=== PATIENT | male | born 1960 | race Two or more races ===

== ENCOUNTER 2024-03-27 08:33 | Outpatient (AMB) | payer MEDICAID, SELFPAY ==
[2024-03-27 09:02] VITALS: BP 132/84; PULSE 67; RESP 18; TEMP 36.4; O2SAT 97; BMI 34.7
--- NOTE | 2024-03-27 09:02 | ORTHONT_ITS ---
Vital signs 03/27/24 09:02 Height 1.71 m Height Method Stated Weight 102.2 kg Weight Measurement Method Standing Scale BMI 34.7 BP 132/84 H Blood Pressure Source Automatic Cuff Blood Pressure Location Right Upper Arm Position Sitting Respiration 18 Pulse 67 Pulse Source Monitor Temp 97.6 F Temp Source Temporal Artery Scan Pulse Oximetry (%) 97 Oxygen Delivery Method Room Air Med/Allergies Allergies & Medications Allergies No Known Allergies Allergy (Verified 03/27/24 09:02) Medication Reconciliation amlodipine 10 mg tablet 10 mg PO QDAY 03/27/24 [History Confirmed 03/27/24] aspirin 81 mg tablet,delayed release 81 mg PO QDAY 03/27/24 [History Confirmed 03/27/24] atorvastatin 20 mg tablet 20 mg PO QDAY 03/27/24 [History Confirmed 03/27/24] blood sugar diagnostic (Blood Glucose Test strips) 03/27/24 [History Confirmed 03/27/24] carvedilol 3.125 mg tablet 3.125 mg PO BID 03/27/24 [History Confirmed 03/27/24] chlorthalidone 50 mg tablet 50 mg PO QDAY 03/27/24 [History Confirmed 03/27/24] empagliflozin 25 mg tablet (Jardiance) 25 mg PO QAM 03/27/24 [History Confirmed 03/27/24] losartan 25 mg tablet 25 mg PO QDAY 03/27/24 [History Confirmed 03/27/24] metformin 1,000 mg tablet 1,000 mg PO QDAY 03/27/24 [History Confirmed 03/27/24] Subjective Visit Visit for: new patient, hip and knee Immunization / Flu Flu Vaccine in the Last 12 Months: No Flu Vaccine Exclusion Criteria: Already Received History of Present Illness Chief complaint: PAIN RIGHT HIP/KNEE Dawood is a pleasant 63-year-old male with Right hip and right knee pain. He also had recent back surgery. She has had multiple surgeries on his right knee and had a multi leg injury quite a while ago. He has had over 7 injections and has tried extensive physical therapy Pain Pain level (0-10): 4 Pain duration: CONSTANT Pain location: groin, inside (medial) and other (specify) (INNER HIP) Pain quality: sharp, dull and aching Pain timing: night and increases with activity Associated signs & symptoms: none Ambulatory data Ambulatory device: none Treatments Improvement with previous injections: No Improvement with PT: No Improvement with NSAIDS: no Review of Systems Review of Systems: All systems negative unless otherwise noted in HPI. Exam Exam Patient is in no acute distress and is cooperative with the examination today. Breathing is nonlabored. Patient has a normal mood and affect. Bilateral extremities were evaluated and demonstrates sensation intact to light touch. Palpable pedal pulses are present. No significant edema is present. Bilateral hips were examined. The patient has no pain with log roll of the hips. Internal rotation to 30 degrees and external rotation to 30 degrees is painless. Negative FADIR. Left knee was examined today. The left knee is in reasonable alignment. Range of motion from 0-120 degrees. Knee is stable to varus and valgus as well as AP translation with <5mm. Patient has a negative McMurrays. There is no pain with patellofemoral compression and no crepitus noted. The knee is nontender to palpation. The right knee was also examined. The right knee is in [varus] alignment. Range of motion from [0-115] degrees. Knee is stable to varus and valgus as well as AP translation with <5mm. Patient has a [negative] McMurrays. There is [no] pain with patellofemoral compression and [no] crepitus noted. The knee is [tender] to palpation [medially]. Right knee x-rays demonstrates complete obliteration of the medial joint space and osteophytes both medially and laterally. These are nonweightbearing films Assessment and Plan Problem List (1) Arthritis of right knee: Status: Acute Plan: Patient is a 63-year-old male with right knee pain and right knee arthritis. We discussed nonoperative and operative options. He weightbearing x-rays and likely talk about surgery at the next visit. He has tried injections and has failed Office Procedures GNS Level of Care Nursing/Assessment Patient Status: Initial/New Patient Nursing Assessment/Reassesment: Medication Reconciliation, Update PMH in EMR and Vital Signs Coordination of Care: Complex Care and Chronic Disease 1-5, Education Complex Pt/Fam, Consent,records obtained, informed consent, 1 Ins Authorization, Lab and Imaging orders, Results/Orders obtained and Staff clarify orders New Patient Charge New Patient Point Assignment: 1124 New Patient Point Charge: REGISTERED NURSE SURGICAL SERVICES Level 4 ([id number]) Past Medical History Past Medical History Have you ever been diagnosed with any of the following: Surgical History Total Hip Replacement: Yes Total Knee Replacement: Yes
== END 2024-03-27 09:32 | disposition home or self-care (01) ==
PROVIDERS: PCP Family Medicine; Referring Provider Family Medicine; Supervising Provider Orthopaedic Surgery Adult Reconstructive Orthopaedic Surgery; Visit Provider Orthopaedic Surgery Adult Reconstructive Orthopaedic Surgery
DX: M17.11 Unilateral primary osteoarthritis, right knee (principal); M25.561 Pain in right knee
CPT/HCPCS: 99204; G0463

== ENCOUNTER 2024-04-10 10:27 | Outpatient (AMB) | payer MEDICAID, SELFPAY ==
[2024-04-10 11:01] VITALS: BP 108/66; PULSE 62; RESP 18; TEMP 36.8; O2SAT 98; BMI 34.3
--- NOTE | 2024-04-10 11:01 | ORTHONT_ITS ---
Vital signs 04/10/24 11:01 Height 1.71 m Height Method Stated Weight 100.471 kg Weight Measurement Method Standing Scale BMI 34.3 BP 108/66 Blood Pressure Source Automatic Cuff Blood Pressure Location Right Upper Arm Position Sitting Respiration 18 Pulse 62 Pulse Source Monitor Temp 98.2 F Temp Source Temporal Artery Scan Pulse Oximetry (%) 98 Oxygen Delivery Method Room Air Med/Allergies Allergies & Medications Allergies No Known Allergies Allergy (Verified 04/10/24 11:03) Medication Reconciliation amlodipine 10 mg tablet 10 mg PO QDAY 03/27/24 [History Confirmed 04/10/24] aspirin 81 mg tablet,delayed release 81 mg PO QDAY 03/27/24 [History Confirmed 04/10/24] atorvastatin 20 mg tablet 20 mg PO QDAY 03/27/24 [History Confirmed 04/10/24] blood sugar diagnostic (Blood Glucose Test strips) 03/27/24 [History Confirmed 04/10/24] carvedilol 3.125 mg tablet 3.125 mg PO BID 03/27/24 [History Confirmed 04/10/24] chlorthalidone 50 mg tablet 50 mg PO QDAY 03/27/24 [History Confirmed 04/10/24] empagliflozin 25 mg tablet (Jardiance) 25 mg PO QAM 03/27/24 [History Confirmed 04/10/24] losartan 25 mg tablet 25 mg PO QDAY 03/27/24 [History Confirmed 04/10/24] metformin 1,000 mg tablet 1,000 mg PO QDAY 03/27/24 [History Confirmed 04/10/24] Subjective Visit Visit for: follow up visit, hip, knee and x-rays Immunization / Flu Flu Vaccine in the Last 12 Months: No Flu Vaccine Exclusion Criteria: Already Received History of Present Illness Chief complaint: XRAY RESULTS Dawood is a pleasant 63-year-old male with Right hip and right knee pain. He a lso had recent back surgery. She has had multiple surgeries on his right knee and had a multi leg injury quite a while ago. He has had over 7 injections and has tried extensive physical therapy Pain Pain level (0-10): 4 Pain duration: CONSTANT Pain location: groin and inside (medial) Pain quality: sharp, dull and aching Pain timing: night and increases with activity Associated signs & symptoms: none Ambulatory data Ambulatory device: none Treatments Improvement with previous injections: No Improvement with PT: No Improvement with NSAIDS: no Review of Systems Review of Systems: All systems negative unless otherwise noted in HPI. Exam Exam Patient is in no acute distress and is cooperative with the examination today. Breathing is nonlabored. Patient has a normal mood and affect. Bilateral extremities were evaluated and demonstrates sensation intact to light touch. Palpable pedal pulses are present. No significant edema is present. Bilateral hips were examined. The patient has no pain with log roll of the hips. Internal rotation to 30 degrees and external rotation to 30 degrees is painless. Negative FADIR. Left knee was examined today. The left knee is in reasonable alignment. Range of motion from 0-120 degrees. Knee is stable to varus and valgus as well as AP translation with <5mm. Patient has a negative McMurrays. There is no pain with patellofemoral compression and no crepitus noted. The knee is nontender to palpation. The right knee was also examined. The right knee is in [varus] alignment. Range of motion from [0-115] degrees. Knee is stable to varus and valgus as well as AP translation with <5mm. Patient has a [negative] McMurrays. There is [no] pain with patellofemoral compression and [no] crepitus noted. The knee is [tender] to palpation [medially]. Right knee x-rays demonstrates complete obliteration of the medial joint space and osteophytes both medially and laterally. Assessment and Plan Problem List (1) Arthritis of right knee: Status: Acute Plan: Patient is a 63-year-old male with right knee pain and right knee arthritis. We discussed nonoperative and operative options. He has failed conservative treatment. We discussed total knee replacement is a reasonable option. He is going on some cruises and would like to get this done most likely around September. We will see him in approximately 3 months to schedule this. Office Procedures GNS Level of Care Nursing/Assessment Patient Status: Established Patient Nursing Assessment/Reassesment: Medication Reconciliation, Update PMH in EMR and Vital Signs Coordination of Care: Complex Care and Chronic Disease 1-5, Education Complex Pt/Fam, Consent,records obtained, informed consent, Results/Orders obtained and Staff clarify orders Established Patient Charge Established Patient Point Assignment: 95 Established Patient Point Charge: EP Level 3 (80-115) Past Medical History Past Medical History Have you ever been diagnosed with any of the following: Respiratory Problems Smoking: No Smoking Exposure: No Surgical History Total Hip Replacement: Yes Total Knee Replacement: Yes
== END 2024-04-10 11:11 | disposition home or self-care (01) ==
LOC: HODSRG 10:27
PROVIDERS: PCP Family Medicine; Referring Provider Family Medicine; Supervising Provider Orthopaedic Surgery Adult Reconstructive Orthopaedic Surgery; Visit Provider Orthopaedic Surgery Adult Reconstructive Orthopaedic Surgery
DX: M17.11 Unilateral primary osteoarthritis, right knee (principal); M25.561 Pain in right knee
CPT/HCPCS: 99213; G0463

== ENCOUNTER 2024-07-14 09:28 | Outpatient (AMB) | payer MEDICAID, SELFPAY ==
--- NOTE | 2024-07-14 09:42 | ORTHONT_ITS ---
Vital signs 07/14/24 09:43 Height 1.71 m Height Method Stated Weight 103.192 kg Weight Measurement Method Standing Scale BMI 35.2 BP 126/78 Blood Pressure Source Automatic Cuff Blood Pressure Location Right Upper Arm Position Sitting Respiration 18 Pulse 68 Pulse Source Monitor Temp 97.4 F Temp Source Temporal Artery Scan Pulse Oximetry (%) 94 L Oxygen Delivery Method Room Air Med/Allergies Allergies & Medications Allergies No Known Allergies Allergy (Verified 07/14/24 09:44) Medication Reconciliation amlodipine 10 mg tablet 10 mg PO QDAY 03/27/24 [History Confirmed 07/14/24] aspirin 81 mg tablet,delayed release 81 mg PO QDAY 03/27/24 [History Confirmed 07/14/24] atorvastatin 20 mg tablet 20 mg PO QDAY 03/27/24 [History Confirmed 07/14/24] blood sugar diagnostic (Blood Glucose Test strips) 03/27/24 [History Confirmed 07/14/24] carvedilol 3.125 mg tablet 3.125 mg PO BID 03/27/24 [History Confirmed 07/14/24] chlorthalidone 50 mg tablet 50 mg PO QDAY 03/27/24 [History Confirmed 07/14/24] empagliflozin 25 mg tablet (Jardiance) 25 mg PO QAM 03/27/24 [History Confirmed 07/14/24] losartan 25 mg tablet 25 mg PO QDAY 03/27/24 [History Confirmed 07/14/24] metformin 1,000 mg tablet 1,000 mg PO QDAY 03/27/24 [History Confirmed 07/14/24] Exam Exam Patient is in no acute distress and is cooperative with the examination today. Breathing is nonlabored. Patient has a normal mood and affect. Bilateral extremities were evaluated and demonstrates sensation intact to light touch. Palpable pedal pulses are present. No significant edema is present. Bilateral hips were examined. The patient has no pain with log roll of the hips. Internal rotation to 30 degrees and external rotation to 30 degrees is painless. Negative FADIR. Left knee was examined today. The left knee is in reasonable alignment. Range of motion from 0-120 degrees. Knee is stable to varus and valgus as well as AP translation with <5mm. Patient has a negative McMurrays. There is no pain with patellofemoral compression and no crepitus noted. The knee is nontender to palpation. The right knee was also examined. The right knee is in [varus] alignment. Range of motion from [0-115] degrees. Knee is stable to varus and valgus as well as AP translation with <5mm. Patient has a [negative] McMurrays. There is [no] pain with patellofemoral compression and [no] crepitus noted. The knee is [tender] to palpation [medially]. Right knee x-rays demonstrates complete obliteration of the medial joint space and osteophytes both medially and laterally. Assessment and Plan Problem List (1) Arthritis of right knee: Status: Acute Plan: Patient is a 63-year-old male with right knee pain and right knee arthritis. We discussed nonoperative and operative options. He has failed conservative t reatment. We discussed total knee replacement as a reasonable option. He is going on some cruises and would like to get this done most likely around September. The nature and purpose of the total knee replacement, alternative method(s) of treatment, the material risks involved, and the possibility of complications were fully explained to the patient. The patient does NOT have any of the following contraindications to TKA: - Active infection of the knee joint, OR - Active systemic bacteremia, OR - Active skin infection or open wound at surgical site, OR - Neuropathic arthritis, OR - Severe, rapidly progressive neurological disease, OR - Severe medical condition that makes risks of surgery outweigh the potential benefit The patient was told the most common risks and complications associated with a total knee replacement include, but are not limited to: blood clots in the leg, fatal pulmonary embolism, dislocation of the prosthesis, intraoperative and postoperative fractures of the femur or tibia, infection, failure of the prosthesis or grafting materials, complications from anesthesia, reactions to blood transfusions, postoperative leg length inequality, instability of the knee replacement, nerve damage or injury, vascular injury, delayed wound healing, infection, other injury or even . In addition, there are risks associated with anesthesia given during this operation. Also, the patient was told that after undergoing a total knee replacement there may still be persistent pain or disability. The patient was informed that the success of this operation in part depends upon the mechanical devices which are going to be implanted and that these devices can fail or malfunction, and may need to be repaired or replaced and there are no guarantees as to the longevity of this device or its parts and that it or its parts could fail prematurely. The patient was also notified that during the course of surgery, there may be a need to use bone graft from donors, and that any bone graft used will be carefully screened for communicable diseases, including AIDS, hepatitis, Cody-Creutzfeldt, or other diseases, but despite the screening procedures, there is a small chance that they could contract one of these diseases. Finally, the patient was asked to follow completely and fully with all advice and recommended treatments, and that recovery and ultimate outcome are affected by their compliance with recommended treatment. We discussed the risks, benefits and treatment alternatives, and the patient is interested in proceeding with surgery. We will try to set this up as expeditiously as possible. Office Procedures GNS Level of Care Nursing/Assessment Patient Status: Established Patient Nursing Assessment/Reassesment: Medication Reconciliation, Update PMH in EMR and Vital Signs Coordination of Care: Complex Care and Chronic Disease 1-5, Education Complex Pt/Fam, Consent,records obtained, informed consent, Results/Orders obtained and Staff clarify orders Established Patient Charge Established Patient Point Assignment: 95 Established Patient Point Charge: EP Level 3 (80-115) Surgical Proc/IM SQ injection Major Surgical Procedure: Yes MA Intake Visit Data Collection New Patient or Established: Established Patient (seen at [facility] within 3 years) Reason for Visit:: F/U KNEE PAIN & XRAYS Seen by Clinical Staff ONLY (RN/MA): No Verbal consent obtained for Telemed visit?: No Business 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 Required: No PCP or OBGYN visit in last 3 months: Yes Hx Now: No Do You Feel Safe at Home: Yes Authorities Contacted: N/A Questionairres Past Medical History Past Medical History Have you ever been diagnosed with any of the following: Respiratory Problems Smoking: No Smoking Exposure: No Surgical History Total Hip Replacement: Yes Total Knee Replacement: Yes Subjective Visit Visit for: follow up visit, knee and x-rays Immunization / Flu Flu Vaccine in the Last 12 Months: No Flu Vaccine Exclusion Criteria: No Exclusion Criteria History of Present Illness Chief complaint: F/U righT KNEE PAIN Dawood is a pleasant 63-year-old male with right knee pain and right knee arthritis. The pain is affecting his quality life. Has had over 7 injections. He is also tried anti-inflammatories and injections. He has had multiple surgeries of the right knee. The pain is affecting his quality life and happiness Pain Pain level (0-10): 4 Pain duration: ALL DAY Pain location: inside (medial), outside (lateral) and anterior Pain quality: sharp, dull and aching Pain timing: increases with activity Associated signs & symptoms: none Ambulatory data Ambulatory device: none Treatments Improvement with previous injections: No Improvement with PT: No Improvement with NSAIDS: no Review of Systems Review of Systems: All systems negative unless otherwise noted in HPI.
[2024-07-14 09:43] VITALS: BP 126/78; PULSE 68; RESP 18; TEMP 36.3; O2SAT 94; BMI 35.2
== END 2024-07-14 10:17 | disposition home or self-care (01) ==
LOC: HODSRG 09:28
PROVIDERS: PCP Family Medicine; Referring Provider Family Medicine; Supervising Provider Orthopaedic Surgery Adult Reconstructive Orthopaedic Surgery; Visit Provider Orthopaedic Surgery Adult Reconstructive Orthopaedic Surgery
DX: M17.11 Unilateral primary osteoarthritis, right knee (principal); M25.561 Pain in right knee
CPT/HCPCS: 99213; G0463

== ENCOUNTER 2024-09-17 14:54 | Outpatient (AMB) | payer MEDICAID, SELFPAY ==
--- NOTE | 2024-09-17 15:02 | PD.ORTHCLVIS ---
Vital signs 09/17/24 15:03 Height 1.71 m Height Method Stated Weight 101.321 kg Weight Measurement Method Standing Scale BMI 34.6 BP 126/75 Blood Pressure Source Automatic Cuff Blood Pressure Location Left Upper Arm Position Sitting Respiration 18 Pulse 75 Pulse Source Monitor Temp 96.2 F L Temp Source Temporal Artery Scan Pulse Oximetry (%) 96 Oxygen Delivery Method Room Air Med/Allergies Allergies & Medications Allergies No Known Allergies Allergy (Verified 09/17/24 15:06) Medication Reconciliation amlodipine 10 mg tablet 10 mg PO QDAY 03/27/24 [History Confirmed 09/17/24] aspirin 81 mg tablet,delayed release 81 mg PO QDAY 03/27/24 [History Confirmed 09/17/24] atorvastatin 20 mg tablet 20 mg PO QDAY 03/27/24 [History Confirmed 09/17/24] blood sugar diagnostic (Blood Glucose Test strips) 03/27/24 [History Confirmed 09/17/24] carvedilol 3.125 mg tablet 3.125 mg PO BID 03/27/24 [History Confirmed 09/17/24] chlorthalidone 50 mg tablet 50 mg PO QDAY 03/27/24 [History Confirmed 09/17/24] empagliflozin 25 mg tablet (Jardiance) 25 mg PO QAM 03/27/24 [History Confirmed 09/17/24] losartan 25 mg tablet 25 mg PO QDAY 03/27/24 [History Confirmed 09/17/24] metformin 1,000 mg tablet 1,000 mg PO QDAY 03/27/24 [History Confirmed 09/17/24] Exam Exam Patient is in no acute distress and is cooperative with the examination today. Breathing is nonlabored. Patient has a normal mood and affect. Bilateral extremities were evaluated and demonstrates sensation intact to light touch. Palpable pedal pulses are present. No significant edema is present. Bilateral hips were examined. The patient has no pain with log roll of the hips. Internal rotation to 30 degrees and external rotation to 30 degrees is painless. Negative FADIR. Left knee was examined today. The left knee is in reasonable alignment. Range of motion from 0-120 degrees. Knee is stable to varus and valgus as well as AP translation with <5mm. Patient has a negative McMurrays. There is no pain with patellofemoral compression and no crepitus noted. The knee is nontender to palpation. The right knee was also examined. The right knee is in [varus] alignment. Range of motion from [0-115] degrees. Knee is stable to varus and valgus as well as AP translation with <5mm. Patient has a [negative] McMurrays. There is [no] pain with patellofemoral compression and [no] crepitus noted. The knee is [tender] to palpation [medially]. Right knee x-rays demonstrates complete obliteration of the medial joint space and osteophytes both medially and laterally. Assessment and Plan Problem List (1) Arthritis of right knee: Status: Acute Plan: Patient is a 63-year-old male with right knee pain and right knee arthritis. We discussed nonoperative and operative options. He has failed conservative treatment. We discussed total knee replacement as a reasonable option. He is going on some cruises and would like to get this done most likely around September. He is waiting for his cardiac clearance. The nature and purpose of the total knee replacement, alternative method(s) of treatment, the material risks involved, and the possibility of complications were fully explained to the patient. The patient does NOT have any of the following contraindications to TKA: - Active infection of the knee joint, OR - Active systemic bacteremia, OR - Active skin infection or open wound at surgical site, OR - Neuropathic arthritis, OR - Severe, rapidly progressive neurological disease, OR - Severe medical condition that makes risks of surgery outweigh the potential benefit The patient was told the most common risks and complications associated with a total knee replacement include, but are not limited to: blood clots in the leg, fatal pulmonary embolism, dislocation of the prosthesis, intraoperative and postoperative fractures of the femur or tibia, infection, failure of the prosthesis or grafting materials, complications from anesthesia, reactions to blood transfusions, postoperative leg length inequality, instability of the knee replacement, nerve damage or injury, vascular injury, delayed wound healing, infection, other injury or even . In addition, there are risks associated with anesthesia given during this operation. Also, the patient was told that after undergoing a total knee replacement there may still be persistent pain or disability. The patient was informed that the success of this operation in part depends upon the mechanical devices which are going to be implanted and that these devices can fail or malfunction, and may need to be repaired or replaced and there are no guarantees as to the longevity of this device or its parts and that it or its parts could fail prematurely. The patient was also notified that during the course of surgery, there may be a need to use bone graft from donors, and that any bone graft used will be carefully screened for communicable diseases, including AIDS, hepatitis, Cody-Creutzfeldt, or other diseases, but despite the screening procedures, there is a small chance that they could contract one of these diseases. Finally, the patient was asked to follow completely and fully with all advice and recommended treatments, and that recovery and ultimate outcome are affected by their compliance with recommended treatment. We discussed the risks, benefits and treatment alternatives, and the patient is interested in proceeding with surgery. We will try to set this up as expeditiously as possible. Office Procedures GNS Level of Care Nursing/Assessment Patient Status: Established Patient Nursing Assessment/Reassesment: Medication Reconciliation, Update PMH in EMR and Vital Signs Coordination of Care: Complex Care and Chronic Disease 1-5, Education Complex Pt/Fam, Consent,records obtained, informed consent, Results/Orders obtained and Staff clarify orders Established Patient Charge Established Patient Point Assignment: 95 Established Patient Point Charge: EP Level 3 (80-115) MA Intake Visit Data Collection New Patient or Established: Established Patient (seen at [facility] within 3 years) Reason for Visit:: PRE OP Seen by Clinical Staff ONLY (RN/MA): No PCP or OBGYN visit in last 3 months: Yes Hx Now: No Do You Feel Safe at Home: Yes Authorities Contacted: N/A Questionairres Past Medical History Past Medical History Have you ever been diagnosed with any of the following: Respiratory Problems Smoking: No Smoking Exposure: No Surgical History Total Hip Replacement: Yes Total Knee Replacement: Yes Subjective Visit Visit for: follow up visit, knee and x-rays Immunization / Flu Flu Vaccine in the Last 12 Months: No Flu Vaccine Exclusion Criteria: No Exclusion Criteria History of Present Illness Chief complaint: F/U righT KNEE PAIN Dawood is a pleasant 63-year-old male with right knee pain and right knee arthritis. The pain is affecting his quality life. Has had over 7 injections. He is also tried anti-inflammatories and injections. He has had multiple surgeries of the right knee. The pain is affecting his quality life and happiness. His hgb a1c is 7.3 Pain Pain level (0-10): 8 Pain duration: ALL DAY Pain location: inside (medial), outside (lateral) and anterior Pain quality: sharp, dull and aching Pain timing: increases with activity Associated signs & symptoms: weakness and none Ambulatory data Ambulatory device: none Treatments Improvement with previous injections: No Improvement with PT: No Improvement with NSAIDS: no Review of Systems Review of Systems: All systems negative unless otherwise noted in HPI.
[2024-09-17 15:03] VITALS: BP 126/75; PULSE 75; RESP 18; TEMP 35.7; O2SAT 96; BMI 34.6
== END 2024-09-17 15:29 | disposition home or self-care (01) ==
LOC: HODSRG 14:54
PROVIDERS: PCP Family Medicine; Referring Provider Family Medicine; Supervising Provider Orthopaedic Surgery Adult Reconstructive Orthopaedic Surgery; Visit Provider Orthopaedic Surgery Adult Reconstructive Orthopaedic Surgery
DX: M17.11 Unilateral primary osteoarthritis, right knee (principal); M25.561 Pain in right knee
CPT/HCPCS: 99213; G0463

== ENCOUNTER 2024-10-20 13:27 | Outpatient (AMB) | payer MEDICAID, SELFPAY ==
[2024-10-20 13:34] VITALS: BP 128/73; PULSE 66; RESP 18; TEMP 36.3; O2SAT 95; BMI 34.3
--- NOTE | 2024-10-20 13:34 | ORTHONT_ITS ---
Vital signs 10/20/24 13:34 Height 1.71 m Height Method Stated Weight 100.499 kg Weight Measurement Method Standing Scale BMI 34.3 BP 128/73 Blood Pressure Source Automatic Cuff Blood Pressure Location Right Upper Arm Position Sitting Respiration 18 Pulse 66 Pulse Source Monitor Temp 97.3 F Temp Source Temporal Artery Scan Pulse Oximetry (%) 95 Oxygen Delivery Method Room Air Med/Allergies Allergies & Medications Allergies No Known Allergies Allergy (Verified 10/20/24 13:34) Medication Reconciliation amlodipine 10 mg tablet 10 mg PO QDAY 03/27/24 [History Confirmed 10/20/24] aspirin 81 mg tablet,delayed release 81 mg PO QDAY 03/27/24 [History Confirmed 10/20/24] atorvastatin 20 mg tablet 20 mg PO QDAY 03/27/24 [History Confirmed 10/20/24] blood sugar diagnostic (Blood Glucose Test strips) 03/27/24 [History Confirmed 10/20/24] carvedilol 3.125 mg tablet 3.125 mg PO BID 03/27/24 [History Confirmed 10/20/24] chlorthalidone 50 mg tablet 50 mg PO QDAY 03/27/24 [History Confirmed 10/20/24] empagliflozin 25 mg tablet (Jardiance) 25 mg PO QAM 03/27/24 [History Confirmed 10/20/24] losartan 25 mg tablet 25 mg PO QDAY 03/27/24 [History Confirmed 10/20/24] metformin 1,000 mg tablet 1,000 mg PO QDAY 03/27/24 [History Confirmed 10/20/24] Exam Exam Patient is in no acute distress and is cooperative with the examination today. Breathing is nonlabored. Patient has a normal mood and affect. Bilateral extremities were evaluated and demonstrates sensation intact to light touch. Palpable pedal pulses are present. No significant edema is present. Bilateral hips were examined. The patient has no pain with log roll of the hips. Internal rotation to 30 degrees and external rotation to 30 degrees is painless. Negative FADIR. Left knee was examined today. The left knee is in reasonable alignment. Range of motion from 0-120 degrees. Knee is stable to varus and valgus as well as AP translation with <5mm. Patient has a negative McMurrays. There is no pain with patellofemoral compression and no crepitus noted. The knee is nontender to palpation. The right knee was also examined. The right knee is in [varus] alignment. Range of motion from [0-115] degrees. Knee is stable to varus and valgus as well as AP translation with <5mm. Patient has a [negative] McMurrays. There is [no] pain with patellofemoral compression and [no] crepitus noted. The knee is [tender] to palpation [medially]. Right knee x-rays demonstrates complete obliteration of the medial joint space and osteophytes both medially and laterally. Assessment and Plan Problem List (1) Arthritis of right knee: Status: Acute Plan: Patient is a 63-year-old male with right knee pain and right knee arthritis. We discussed nonoperative and operative options. He has failed conservative nnamdi atment. We discussed total knee replacement as a reasonable option. He is going on some cruises and would like to get this done as soon as possible. The patient request that he get a copy of the surgery as he wanted films. We discussed with him he would likely need to sign a consent but that this is possible. We discussed that this would likely be doing the crucial parts including implanting the components and cutting the bone with the robot. The nature and purpose of the total knee replacement, alternative method(s) of treatment, the material risks involved, and the possibility of complications were fully explained to the patient. The patient does NOT have any of the following contraindications to TKA: - Active infection of the knee joint, OR - Active systemic bacteremia, OR - Active skin infection or open wound at surgical site, OR - Neuropathic arthritis, OR - Severe, rapidly progressive neurological disease, OR - Severe medical condition that makes risks of surgery outweigh the potential benefit The patient was told the most common risks and complications associated with a total knee replacement include, but are not limited to: blood clots in the leg, fatal pulmonary embolism, dislocation of the prosthesis, intraoperative and postoperative fractures of the femur or tibia, infection, failure of the prosthesis or grafting materials, complications from anesthesia, reactions to blood transfusions, postoperative leg length inequality, instability of the knee replacement, nerve damage or injury, vascular injury, delayed wound healing, infection, other injury or even . In addition, there are risks associated with anesthesia given during this operation. Also, the patient was told that after undergoing a total knee replacement there may still be persistent pain or disability. The patient was informed that the success of this operation in part depends upon the mechanical devices which are going to be implanted and that these devices can fail or malfunction, and may need to be repaired or replaced and there are no guarantees as to the longevity of this device or its parts and that it or its parts could fail prematurely. The patient was also notified that during the course of surgery, there may be a need to use bone graft from donors, and that any bone graft used will be carefully screened for communicable diseases, including AIDS, hepatitis, Travis ob-Creutzfeldt, or other diseases, but despite the screening procedures, there is a small chance that they could contract one of these diseases. Finally, the patient was asked to follow completely and fully with all advice and recommended treatments, and that recovery and ultimate outcome are affected by their compliance with recommended treatment. We discussed the risks, benefits and treatment alternatives, and the patient is interested in proceeding with surgery. We will try to set this up as expeditiously as possible. Office Procedures GNS Level of Care Nursing/Assessment Patient Status: Established Patient Nursing Assessment/Reassesment: Medication Reconciliation, Update PMH in EMR and Vital Signs Coordination of Care: Complex Care and Chronic Disease 1-5, Education Complex Pt/Fam, Consent,records obtained, informed consent, 1 Ins Authorization, Results/Orders obtained and Staff clarify orders Established Patient Charge Established Patient Point Assignment: 110 Established Patient Point Charge: EP Level 3 (80-115) MA Intake Visit Data Collection New Patient or Established: Established Patient (seen at [facility] within 3 years) Reason for Visit:: PRE-OP RIGHT TKA Seen by Clinical Staff ONLY (RN/MA): No Verbal consent obtained for Telemed visit?: No 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: No PCP or OBGYN visit in last 3 months: Yes Hx Now: No Do You Feel Safe at Home: Yes Authorities Contacted: N/A Questionairres Past Medical History Past Medical History Have you ever been diagnosed with any of the following: Respiratory Problems Smoking: No Smoking Exposure: No Surgical History Total Hip Replacement: Yes Total Knee Replacement: Yes Subjective Visit Visit for: follow up visit and knee Immunization / Flu Flu Vaccine in the Last 12 Months: No Flu Vaccine Exclusion Criteria: No Exclusion Criteria History of Present Illness Chief complaint: PRE-OP RIGHT TKA Dawood is a pleasant 63-year-old male with right knee pain and right knee arthritis. The pain is affecting his quality life. Has had over 7 injections. He is also tried anti-inflammatories and injections. He has had multiple surgeries of the right knee. The pain is affecting his quality life and happiness. His hgb a1c is 7.3 Personal History Red flag PMH: BMI BMI Counceling provided: Yes Pain Pain level (0-10): 7 Pain duration: ALL DAY Pain location: anterior and posterior Pain quality: sharp, dull and aching Pain timing: increases with activity Associated signs & symptoms: weakness Ambulatory data Ambulatory device: none Treatments Improvement with previous injections: No Improvement with PT: No Improvement with NSAIDS: no Review of Systems Review of Systems: All systems negative unless otherwise noted in HPI.
== END 2024-10-20 13:45 | disposition home or self-care (01) ==
LOC: HODSRG 13:27
PROVIDERS: PCP Family Medicine; Referring Provider Family Medicine; Supervising Provider Orthopaedic Surgery Adult Reconstructive Orthopaedic Surgery; Visit Provider Orthopaedic Surgery Adult Reconstructive Orthopaedic Surgery
DX: M17.11 Unilateral primary osteoarthritis, right knee (principal); M25.561 Pain in right knee
CPT/HCPCS: 99213; G0463

== ENCOUNTER → 2024-10-22 | Outpatient (CLI) | payer MEDICAID, SELFPAY | END | disposition home or self-care (01) | LOC: CDIM 11:39 → CCTX 11:39 | PROVIDERS: PCP Family Medicine; Referring Provider Orthopaedic Surgery Adult Reconstructive Orthopaedic Surgery; Visit Provider Orthopaedic Surgery Adult Reconstructive Orthopaedic Surgery | DX: Z53.20 Procedure and treatment not carried out because of patient's decision for unspecified reasons (principal) ==

== ENCOUNTER 2024-11-02 08:20 | Day surgery (SDC) | payer MEDICAID, SELFPAY ==
--- NOTE | 2024-10-28 06:00 | EKG_ITS ---
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
[2024-10-28 09:38] VITALS: BMI 35.3
[2024-10-28 10:57] LABS: Basophils # (Auto) 0.1 Thou/mm3 (0.0-0.2); Basophils % (Auto) 1 % (0-2.5); Eosinophils # (Auto) 0.1 Thou/mm3 (0.0-0.5); Eosinophils % (Auto) 2 % (0-10); Hematocrit 43.7 % (41.0-53.0); Hemoglobin 16.5 g/dL (13.5-16.0); Immature Granulocytes % (Auto) 1 % (0-0); Immature Granulocytes Auto 0.04 Thou/mm3 (0.00-0.00); Lymphocytes # (Auto) 1.6 Thou/mm3 (1.0-4.8); Lymphocytes % (Auto) 22 % (10-50); Mean Corpuscular HGB Conc 37.8 g/dl (31.0-37.0); Mean Corpuscular Hemoglobin 34.7 pg (25.0-35.0); Mean Corpuscular Volume 92 fL (80-100); Monocytes # (Auto) 0.5 Thou/mm3 (0.0-0.8); Monocytes % (Auto) 7 % (0-12); Neutrophils # (Auto) 4.9 Thou/mm3 (1.8-7.7); Neutrophils % (Auto) 68 % (37-80); Nucleated Red Blood Cell % 0 /100 WBC (0); Platelet Count 233 Thou/mm3 (140-440); RDW Standard Deviation 40.7 fL (35.1-43.9); Red Blood Count 4.76 Miln/mm3 (4.50-5.90); White Blood Count 7.2 Thou/mm3 (3.8-10.6)
[2024-10-28 11:11] LABS: INR 0.9 (0.9-1.3); Partial Thromboplastin Time 25.1 Seconds (22.0-36.0); Prothrombin Time 10.3 Seconds (9.0-12.2)
--- NOTE | 2024-10-28 11:12 | XR_ITS ---
Examination: CT right lower extremity, without contrast. 2-D sagittal reconstructions. 2-D coronal reconstructions. 3-D reconstructions. Date and time of exam:October 28, 2024 1205 hours INDICATIONS: Diagnosis right knee unilateral osteoarthritis right knee pain 25 years CTDI: vol (mGy):12.7 DLP: (mGycm):139 Technique: Multiple 1.25 mm axial sections of the right lower extremity without intravenous contrast have been obtained. 2-D sagittal and coronal reconstructions have been obtained. 3-D reconstructions have been obtained. Low dose protocols were performed. One or more of the following dose reduction techniques were used; automated exposure control, adjustment of the mA and/or KV according to patient size, use of iterative reconstruction technique. Findings: Prominent osteopenia Moderate narrowing right hip joint No right hip fracture or dislocation Advanced right knee tricompartment osteoarthritis, severe narrowing medial joint space No fracture IMPRESSION: Advanced right knee tricompartment osteoarthritis
[2024-10-28 11:18] LABS: Alanine Aminotransferase 16 U/L (10-49); Albumin, Serum 4.5 gm/dL (3.4-4.8); Albumin/Globulin Ratio 1.7 (1.2-2.2); Alkaline Phosphatase 40 U/L (46-116); Anion Gap 11 (7-16); Aspartate Amino Transferase 15 U/L (0-34); BUN/Creatinine Ratio 17 Ratio (12-20); Bilirubin,Total 1.1 mg/dL (0.3-1.2); Blood Urea Nitrogen 17 mg/dL (9-23); Calcium 9.4 mg/dL (8.3-10.6); Calcium (Corrected) 9.4 mg/dL (8.5-10.1); Carbon Dioxide 31.6 mMol/L (20.0-31.0); Chloride 100 mMol/L (98-107); Estimated Creatinine Clearance 85.1 mL/min (>60); Globulin 2.6 gm/dL (2.3-3.5); Glucose 181 mg/dL (74-106); Osmolality,Calculated 291 (275-295); Potassium 4.1 mMol/L (3.4-5.1); Sodium 143 mMol/L (136-145); Total Protein 7.1 gm/dL (5.7-8.2); eGFR > 60 See Note
--- NOTE | 2024-10-28 12:42 | SUR.PREOP ---
Cardiac records and history reviewed with Dr Feliz.
[2024-11-02] VITALS (15 sets, daily range): BP systolic 106–163; BP diastolic 67–79; PULSE 66–83; RESP 12–20; TEMP 36.3–37.1; O2SAT 95–100; BMI 34.4; BMI 14.0
[2024-11-02] MEDS: RINGERS LACTATED 1000 ML 1,000 ML 20 ML IV (09:20)
[2024-11-02] MEDS: ACETAMINOPHEN 325 MG TABLET 650 MG PO (09:21)
[2024-11-02] MEDS: MELOXICAM 7.5 MG TABLET PO (09:21)
[2024-11-02] MEDS: PREGABALIN 75 MG CAPSULE PO (09:22)
--- NOTE | 2024-11-02 12:44 | ESOP_ITS ---
Date of Procedure 11/02/24 Pre Op Diagnosis left knee osteoarthritis Post Op Diagnosis left knee osteoarthritis Procedure left total knee replacement Findings full thickness cartilage loss and osteophytes Procedure Description Indication: The patient is a 64 year old who has a long history of left knee pain. X-rays show degenerative arthritis involving the knee. Over the past several years the patient has had increasing pain, progressive limitation in function. He has failed conservative measures including activity modification, physical therapy, injections, anti-inflammatories, and assistive devices. After a lengthy discussion of the risks and benefits, the patient presents now for total knee replacement. The nature and purpose of the total knee replacement, alternative method(s) of treatment, the material risks involved, and the possibility of complications were fully explained to the patient. The patient was told the most common risks and complications associated with a total knee replacement include, but are not limited to blood clots in the leg, fatal pulmonary embolism, dislocation of the prosthesis, intraoperative and postoperative fractures of the femur or tibia, infection, failure of the prosthesis or grafting materials, complications from anesthesia, reactions to blood transfusions, postoperative leg length inequality, instability of the knee replacement, nerve damage or injury, vascular injury, delayed wound healing, infections, other injury or even . In addition, there are risks associated with anesthesia given during this operation, temporary or permanent numbness on the skin lateral to the incision can be a complication unique to total knee surgery, and kneeling can be painful after knee replacement surgery. Also, the patient was told that after undergoing a total knee replacement there may still be pain or disability. We discussed with the patient that we will be using a robot-assisted technology. We discussed that there is a possibility of converting to manual instrumentation. The patient was informed that the success of this operation in part depends upon the mechanical devices which are going to be implanted and that these devices can fail or malfunction, and may need to be repaired or replaced and there are no guarantees as to the longevity of this device or its part and that it or its parts could fail prematurely. Finally, the patient was asked to follow completely and fully with all advice and recommended treatments, and that recovery and ultimate outcome are affected by their compliance with recommended treatment. Surgical technique: Patient was marked and consented in the pre-operative area. The patient was brought to the operating room and placed on the operating table in a supine position. Prior to positioning, a timeout procedure was performed between the surgeon, the anesthesiologist, and the nursing staff where the patient and the operative side were identified and confirmed. After adequate general anesthetic was obtained, the left lower extremity was prepped and draped in the usual sterile fashion. A weight based dose of Cefazolin were administered within 1 hour prior to incision. The robot was preregistered and calirated before the incision. The extremity was exsanguinated with an esmarch badge and tourniquet inflated to 250mmHg. A midline incision was made. A median parapatellar arthrotomy was made. The patella was subluxed laterally. A medial release was performed to expose the medial tibia. His femoral and tibial pins were placed through an intra incisional manner for both cases. Every effort was made to ensure that the distalmost aspect of the pin was hung in the second cortex. The arrays were then tightened several times to ensure that it was fixed for the remainder of the case. Both femoral and tibial checkpoints were then placed. We then went through the registration process of the bone. We then assessed the knee deformity and attempted to correct it. We also used the robot to aid in judging laxity in both extension and flexion. Final based on laxity and alignment we changed the preoperative assessment to obtain proper proper implant positioning and to correct deformity. Attention was then placed to the tibia. We made a tibial cut using the robot ensuring that both the MCL and the patella tendon were protected with retractors. We then went to the femur and made the posterior cut followed by the anterior cut and the anterior chamfer. The bone was then removed and we made a distal femur cut and a posterior chamfer cut. We verified all cuts. A trial reduction was performed with a size 6 femoral component and a size 6 keeled tibial component. The patella tracked centrally, and no lateral re tinacular release was necessary. The trial implants were removed. The arrays, pins, and checkpoints were all removed. We performed a verification that all pins were removed. The cut bone surfaces were lavaged with surgiphor. A size 6 keeled tibial component were impacted into position. When placing the femoral component on the program management intern, we found that there was cement from a previous case on the program management intern. We wasted the femoral component and used new trays for the remained was case. The wound was copiously irrigated with saline and 2 bottles of surgiphor. The femoral component was then cemented with 2 bags of palacos g. The knee was felt to be well balanced in the sagittal and coronal plane. The 6X10 mm trial was placed. The knee was brought out to full extension, flexed up to 120 degrees. It was stable to varus and valgus stress and appropriately balanced in flexion and extension.Once the cement dried, we placed the polyethylene component. The wounds were copiously irrigated following deflation of tourniquet. The medial retinaculum was reapproximated with #1 vicryl and quill. The subcutaneous tissues were closed with 0 and 2-0 interrupted Vicryl. The skin was closed with 3-0 Monofilament V loc suture. A sterile dressing was applied. The patient was transferred to a bed and brought to recovery in stable condition. The patient tolerated the procedure well. There were no intraoperative complications. Sponge and needle counts were correct times 2. As the attending surgeon, I attest I was present and performed the entire operation. Grafts/Implants Size 6 CR Femur cemented, one femur was wasted Size 6 Tibia 10mm poly CS 2 bags of palacos Anesthesia spinal Implants dana Pathology / specimen None Pathology comment: none Estimated Blood Loss 150 Condition Stable Disposition same day Surgeon Robin Prieto MD Surgical Staff Operation Date: 11/02/24 13:00 Case Staff Anesthesiologist: Jose Ramon Rico RN First Assistant: Angelita Brand
--- NOTE | 2024-11-02 12:56 | XR_ITS ---
Examination: Right knee 2 views TECHNIQUE: AP lateral right knee 2 views Date and time: November 02, 2024 1344 hours INDICATIONS: Postop arthroplasty today. FINDINGS: Total right knee arthroplasty. Satisfactory alignment. No fracture IMPRESSION: Total right knee arthroplasty with satisfactory alignment
--- NOTE | 2024-11-02 13:06 | SUR.PHASEI ---
1306 Patient arrived to recovery resting comfortably in [facility], on oxygen 3L via oxy mask, breathing unlabored, vital signs stable, denies pain, dressing intact to right lower extremity; prineo, abd, webril, denia wraps, no bleeding noted, denies nausea, post spinal anesthesia assessment via ice, patient has dermatome sensation at T-10 (umbilicus), bilateral posterior tibial pulses present when palpated, patient has good circulation to right lower extremity; skin color normal for patient and warm to touch, report received from Dr. Rico and Erma WEEMS/ Anat RN
--- NOTE | 2024-11-02 13:45 | SUR.OPER ---
1345 XRAY complete per MD order
--- NOTE | 2024-11-02 14:01 | SUR.PHASEII ---
patient ate a jello and drinking 7up, tolerating well, denies nausea
--- NOTE | 2024-11-02 14:40 | SUR.PHASEII ---
patient eating meal from the cafeteria; tolerating well
--- NOTE | 2024-11-02 15:00 | SUR.PHASEII ---
1500 patient ate a sandwich, salad, fruit, pudding and tolerated well
--- NOTE | 2024-11-02 15:06 | SUR.PHASEII ---
8269 post spinal anesthesia assessment complete patient has dermatome sensation at S2
--- NOTE | 2024-11-02 15:50 | SUR.PHASEII ---
1551 Patient cleared by Physical therapy Jackeline to proceed with discharge
--- NOTE | 2024-11-02 16:10 | SUR.PHASEII ---
1610 Patient meets discharge criteria from recovery, awake and alert, breathing unlabored, vital signs stable, denies pain, dressing intact; no bleeding noted, patient voided in the restroom prior to discharge, denies nausea, assisted with dressing into his clothing by his , discharge instructions given to patient and patients , signed discharge instructions. Patient given all his belongings prior to discharge, transported via wheelchair and left in a private vehicle.
== END 2024-11-02 16:10 | disposition home or self-care (01) ==
PROVIDERS: Anesthesiology; PCP Family Medicine; Referring Provider Orthopaedic Surgery Adult Reconstructive Orthopaedic Surgery; Visit Provider Orthopaedic Surgery Adult Reconstructive Orthopaedic Surgery
PROC: (CPT 27447; principal; 2024-11-02 12:45)
DX: M17.12 Unilateral primary osteoarthritis, left knee (principal); Z01.810 Encounter for preprocedural cardiovascular examination; M25.762 Osteophyte, left knee
CPT/HCPCS: 27447; 20985; 36415; 73560; 73700; 80053; 85025; 85610; 85730; 93005; 97162; A4217; C1713; C1776; J1100; J1885; J2250; J2405; J2704; J2795; J3010; J3490; J7120; J7999; A4648; A4649; A9270

== ENCOUNTER 2024-11-10 13:21 | Outpatient (AMB) | payer MEDICAID, SELFPAY ==
--- NOTE | 2024-11-10 13:56 | ORTHONT_ITS ---
Vital signs 11/10/24 14:02 Height 1.71 m Height Method Stated Weight 98.628 kg Weight Measurement Method Standing Scale BMI 33.7 BP 165/82 H Blood Pressure Source Automatic Cuff Blood Pressure Location Left Upper Arm Position Sitting Respiration 18 Pulse 78 Pulse Source Monitor Temp 96.5 F L Temp Source Temporal Artery Scan Pulse Oximetry (%) 95 Oxygen Delivery Method Room Air Med/Allergies Allergies & Medications Allergies No Known Allergies Allergy (Verified 11/10/24 14:03) Medication Reconciliation amlodipine 10 mg tablet 10 mg PO QDAY 03/27/24 [History Confirmed 11/10/24] carvedilol 3.125 mg tablet 3.125 mg PO BID 03/27/24 [History Confirmed 11/10/24] chlorthalidone 50 mg tablet 50 mg PO QDAY PRN edema 03/27/24 [History Confirmed 11/10/24] empagliflozin 25 mg tablet (Jardiance) 25 mg PO QAM 03/27/24 [History Confirmed 11/10/24] losartan 25 mg tablet 25 mg PO QDAY 03/27/24 [History Confirmed 11/10/24] metformin 1,000 mg tablet 1,000 mg PO QDAY 03/27/24 [History Confirmed 11/10/24] atorvastatin 20 mg tablet (Lipitor) 20 mg PO QDAY 10/29/24 [History Confirmed 11/10/24] azelastine 137 mcg (0.1 %) nasal spray 1 spray intranasal Q12H 10/29/24 [History Confirmed 11/10/24] cetirizine 10 mg tablet 10 mg PO DAILY 10/29/24 [History Confirmed 11/10/24] fluticasone propionate 50 mcg/actuation nasal spray,suspension 1 spray intranasal DAILY 10/29/24 [History Confirmed 11/10/24] montelukast 10 mg tablet 10 mg PO DAILY 10/29/24 [History Confirmed 11/10/24] sitagliptin phosphate 50 mg tablet (Januvia) 50 mg PO DAILY 10/29/24 [History Confirmed 11/10/24] acetaminophen 500 mg tablet (Acetaminophen Extra Strength) 1,000 mg (2 x 500 mg) PO Q6H PRN pain #90 tabs 11/02/24 [Rx Confirmed 11/10/24] aspirin 81 mg tablet,delayed release 81 mg PO BID #60 tabs 11/02/24 [Rx Confirmed 11/10/24] doxycycline hyclate 100 mg tablet 100 mg PO BID #14 tabs 11/02/24 [Rx Confirmed 11/10/24] gabapentin 300 mg capsule 300 mg PO .qhs #30 caps 11/02/24 [Rx Confirmed 11/10/24] sennosides 8.6 mg-docusate sodium 50 mg tablet (Senna-S) 1 tab-cap PO QDAY #30 tabs 11/02/24 [Rx Confirmed 11/10/24] oxycodone 5 mg tablet 5 mg PO Q6H PRN pain #28 tabs 11/09/24 [Rx Confirmed 11/10/24] cyclobenzaprine 5 mg tablet 5 mg PO TID PRN muscle spasm #28 tabs 11/10/24 [Rx Confirmed 11/10/24] Exam Exam Patient is in no acute distress and is cooperative with the examination today. Patient has a normal mood and affect. Breathing is nonlabored. In no respiratory distress. Bilateral extremities were evaluated and demonstrates sensation intact to light touch. Palpable pedal pulses are present. No significant edema is present. Right knee incision is clean dry and intact. Range of motion 0 to 100 Degrees Assessment and Plan Problem List (1) Arthritis of right knee: Status: Acute Plan: Patient is a 63-year-old male with right knee pain and right knee arthritis. He is status post right total knee replacement and is doing well. We will see him back for routine follow-up in 4-5 Office Procedures GNS Level of Care Nursing/Assessment Patient Status: Established Patient Nursing Assessment/Reassesment: Medication Reconciliation, Update PMH in EMR and Vital Signs Coordination of Care: Complex Care and Chronic Disease 1-5, Education Complex Pt/Fam, Consent,records obtained, informed consent, Results/Orders obtained and Staff clarify orders Established Patient Charge Established Patient Point Assignment: 95 Established Patient Point Charge: EP Level 3 (80-115) MA Intake Visit Data Collection New Patient or Established: Established Patient (seen at [facility] within 3 years) Reason for Visit:: SWOLLEN KNEE F/U Seen by Clinical Staff ONLY (RN/MA): No PCP or OBGYN visit in last 3 months: Yes Hx Now: No Do You Feel Safe at Home: Yes Authorities Contacted: N/A Questionairres Past Medical History Past Medical History Have you ever been diagnosed with any of the following: Neurological Problems Seizures: No Head Trauma: Yes (hospitalized once) Cardiology Problems Myocardial Infarction: Yes Coronary Artery Disease: Yes Peripheral Vascular Disease: Yes Hypercholesterolemia: Yes Congestive Heart Failure: No Hypertension: Yes Varicose Veins: Yes Respiratory Problems Chronic Obstructive Pulmonary Disease (COPD): No Sleep Apnea: Yes (has not used the CPAP yet, has it at home) Smoking: No Smoking Exposure: No Stomache/Intestinal Problems Hepatitis: No Irritable Bowel: Yes Obesity: Yes Genital/Urinary Problems Renal Disease: No Benign Prostatic Hyperplasia: Yes Musculoskeletal Problems Arthritis: Yes Degenerative Disk Disease: Yes Head,Eye,Nose,Throat Problems Cataracts: Yes Endocrine Problems Diabetes Mellitus Type 1: No Diabetes Mellitus Type 2: Yes Other Problems Hospitalization: Yes Shingles: No Falls: No Blood Transfusions: No Blood Transfusion Reaction: No Anesthesia Reactions: No Chicken Pox: Yes Measles: Yes Cancer: No Surgical History Total Hip Replacement: Yes Total Knee Replacement: Yes Subjective Visit Visit for: follow up visit and knee Immunization / Flu Flu Vaccine in the Last 12 Months: No Flu Vaccine Exclusion Criteria: No Exclusion Criteria History of Present Illness Chief complaint: Right knee pain Dawood is 10 days status post right total knee replacement. He is doing well. The pain has gone down substantially as well as the swelling. Pain Pain level (0-10): 6 Pain duration: ALL DAY Pain location: inside (medial) and anterior Pain quality: sharp and aching Pain timing: night, increases with activity and stairs Ambulatory data Ambulatory device: walker Treatments Improvement with previous injections: No Improvement with PT: No Improvement with NSAIDS: no Review of Systems Review of Systems: All systems negative unless otherwise noted in HPI.
[2024-11-10 14:02] VITALS: BP 165/82; PULSE 78; RESP 18; TEMP 35.8; O2SAT 95; BMI 33.7
== END 2024-11-10 14:17 | disposition home or self-care (01) ==
LOC: HODSRG 13:21
PROVIDERS: PCP Family Medicine; Referring Provider Family Medicine; Supervising Provider Orthopaedic Surgery Adult Reconstructive Orthopaedic Surgery; Visit Provider Orthopaedic Surgery Adult Reconstructive Orthopaedic Surgery
DX: M17.11 Unilateral primary osteoarthritis, right knee (principal); M25.561 Pain in right knee; Z96.651 Presence of right artificial knee joint; I10 Essential (primary) hypertension; I25.10 Atherosclerotic heart disease of native coronary artery without angina pectoris; E78.00 Pure hypercholesterolemia, unspecified; G47.30 Sleep apnea, unspecified; E11.9 Type 2 diabetes mellitus without complications
CPT/HCPCS: 99213; G0463

== ENCOUNTER 2024-12-15 13:03 | Outpatient (AMB) | payer MEDICAID, SELFPAY ==
--- NOTE | 2024-12-15 13:10 | PD.ORTHCLVIS ---
Vital signs 12/15/24 13:14 Height 1.71 m Height Method Measured Weight 96.247 kg Weight Measurement Method Standing Scale BMI 32.9 BP 117/75 Blood Pressure Source Automatic Cuff Blood Pressure Location Left Upper Arm Position Sitting Respiration 16 Pulse 73 Pulse Source Monitor Temp 97.8 F Temp Source Temporal Artery Scan Pulse Oximetry (%) 96 Oxygen Delivery Method Room Air Med/Allergies Allergies & Medications Allergies No Known Allergies Allergy (Verified 12/15/24 13:15) Medication Reconciliation amlodipine 10 mg tablet 10 mg PO QDAY 03/27/24 [History Confirmed 12/15/24] carvedilol 3.125 mg tablet 3.125 mg PO BID 03/27/24 [History Confirmed 12/15/24] chlorthalidone 50 mg tablet 50 mg PO QDAY PRN edema 03/27/24 [History Confirmed 12/15/24] empagliflozin 25 mg tablet (Jardiance) 25 mg PO QAM 03/27/24 [History Confirmed 12/15/24] losartan 25 mg tablet 25 mg PO QDAY 03/27/24 [History Confirmed 12/15/24] metformin 1,000 mg tablet 1,000 mg PO QDAY 03/27/24 [History Confirmed 12/15/24] atorvastatin 20 mg tablet (Lipitor) 20 mg PO QDAY 10/29/24 [History Confirmed 12/15/24] azelastine 137 mcg (0.1 %) nasal spray 1 spray intranasal Q12H 10/29/24 [History Confirmed 12/15/24] cetirizine 10 mg tablet 10 mg PO DAILY 10/29/24 [History Confirmed 12/15/24] fluticasone propionate 50 mcg/actuation nasal spray,suspension 1 spray intranasal DAILY 10/29/24 [History Confirmed 12/15/24] montelukast 10 mg tablet 10 mg PO DAILY 10/29/24 [History Confirmed 12/15/24] sitagliptin phosphate 50 mg tablet (Januvia) 50 mg PO DAILY 10/29/24 [History Confirmed 12/15/24] acetaminophen 500 mg tablet (Acetaminophen Extra Strength) 1,000 mg (2 x 500 mg) PO Q6H PRN pain #90 tabs 11/02/24 [Rx Confirmed 12/15/24] aspirin 81 mg tablet,delayed release 81 mg PO BID #60 tabs 11/02/24 [Rx Confirmed 12/15/24] doxycycline hyclate 100 mg tablet 100 mg PO BID #14 tabs 11/02/24 [Rx Confirmed 12/15/24] gabapentin 300 mg capsule 300 mg PO .qhs #30 caps 11/02/24 [Rx Confirmed 12/15/24] sennosides 8.6 mg-docusate sodium 50 mg tablet (Senna-S) 1 tab-cap PO QDAY #30 tabs 11/02/24 [Rx Confirmed 12/15/24] oxycodone 5 mg tablet 5 mg PO Q6H PRN pain #28 tabs 11/09/24 [Rx Confirmed 12/15/24] cyclobenzaprine 5 mg tablet 5 mg PO TID PRN muscle spasm #28 tabs 11/10/24 [Rx Confirmed 12/15/24] Exam Exam Patient is in no acute distress and is cooperative with the examination today. Patient has a normal mood and affect. Breathing is nonlabored. In no respiratory distress. Bilateral extremities were evaluated and demonstrates sensation intact to light touch. Palpable pedal pulses are present. No significant edema is present. Right knee incision is clean dry and intact. Range of motion 0 to 100 Degrees Assessment and Plan Problem List (1) Arthritis of right knee: Status: Acute Plan: Patient is a 63-year-old male with right knee pain and right knee arthritis. He is status post right total knee replacement and is doing well. He is a little ways to start physical therapy but his range of motion is great. Will see him back in 6 weeks for routine follow-up. Office Procedures GNS Level of Care Nursing/Assessment Patient Status: Established Patient Nursing Assessment/Reassesment: Medication Reconciliation, Update PMH in EMR and Vital Signs Coordination of Care: Complex Care and Chronic Disease 1-5, Education Complex Pt/Fam, Consent,records obtained, informed consent, Lab and Imaging orders, Results/Orders obtained and Staff clarify orders Established Patient Charge Established Patient Point Assignment: 110 Established Patient Point Charge: EP Level 3 (80-115) MA Intake Visit Data Collection New Patient or Established: Established Patient (seen at [facility] within 3 years) Reason for Visit:: 6 WK POST OP TKA Seen by Clinical Staff ONLY (RN/MA): No Vat Operator Required: No PCP or OBGYN visit in last 3 months: Yes Hx Now: No Do You Feel Safe at Home: Yes Authorities Contacted: N/A Questionairres Past Medical History Past Medical History Have you ever been diagnosed with any of the following: Neurological Problems Cerebrovascular Accident (CVA): No Transient Ischemic Attacks (TIA): No Dementia: No Alzheimer's Disease: No Parkinson's Disease: No Brain Tumor: No Meningitis: No Seizures: No Epilepsy: No Multiple Sclerosis: No Cerebral Palsy: No Amyotrophic Lateral Sclerosis (ALS/Katharine Gehrig's): No Guillain-Ellsworth Syndrome: No Spina Bifida: No Paralysis: No Peripheral Neuropathy: No Newton's Palsy: No Subdural Hematoma: No Migraine: No Head Trauma: Yes (hospitalized once) Spinal Cord Injury: No Traumatic Brain Injury: No Cardiology Problems Myocardial Infarction: Yes Cardiac Arrhythmia: No Atrial Fibrillation: No Angina: No Heart Murmur: No Coronary Artery Disease: Yes Atherosclerotic Heart Disease: No Peripheral Vascular Disease: Yes Hypercholesterolemia: Yes Aneurysm: No Congestive Heart Failure: No Congenital Heart Disease: No Valvular Heart Disease: No Rheumatic Fever: No Cardiomyopathy: No Edema: No Pericarditis: No Cellulitis: No Deep Vein Thrombosis: No Hypertension: Yes Hypotension: No Varicose Veins: Yes Respiratory Problems Chronic Obstructive Pulmonary Disease (COPD): No Asthma: No Bronchitis: No Emphysema: No Pneumonia: No Pulmonary Fibrosis: No Tuberculosis: No Pulmonary Embolism: No Pulmonary Edema: No Sleep Apnea: Yes (has not used the CPAP yet, has it at home) CPAP Dependent: No Respiratory Aspiration: No Dyspnea: No Orthopnea: No Hx Cough: No Cough: No Wheezing: No Chest Deformities: No Smoking: No Smoking Cessation Counseling: No Smoking Exposure: No Tobacco Use: No Clubbing: No Exposure to Respiratory Irritants: No Intubation: No Stomache/Intestinal Problems Liver Cancer: No Hepatitis: No Cirrhosis: No Pancreatic Cancer: No Pancreatitis: No Celiac Disease: No Gall Bladder Disease: No Gastrointestinal Bleed: No Esophageal Varices: No Quiros's Esophagus: No Colitis: No Ulcerative Colitis: No Diverticulitis: No Diverticulosis: No Ulcer: No Colorectal Cancer: No Irritable Bowel: Yes Crohn's Disease: No Obstructive Bowel: No Hiatal Hernia: No Hemorrhoids: No Gastroesophageal Reflux Disease: No Polyps: No Obesity: Yes Genital/Urinary Problems Chronic Kidney Disease: No Renal Disease: No Kidney Stones: No Polycystic Kidney Disease: No Neurogenic Bladder: No Inguinal Hernia: No Dialysis: No Prostate Cancer: No Benign Prostatic Hyperplasia: Yes Reproductive Problems Breast Cancer: No Fibroids: No Genital Herpes: No Gonorrhea: No Syphilis: No Testicular Cancer: No Musculoskeletal Problems Muscular Dystrophy: No Myasthenia Gravis: No Marfan's Syndrome: No Bone Cancer: No Arthritis: Yes Rheumatoid Arthritis: No Osteoporosis: No Degenerative Disk Disease: Yes Gout: No Scoliosis: No Carpal Tunnel Syndrome: No Fibromyalgia: No Fractures: No Degenerative Joint Disease: No Osteomyelitis: No Poliovirus: No Head,Eye,Nose,Throat Problems Cataracts: Yes Glaucoma: No Blind: No Retinal Detachment: No Macular Degeneration: No Chronic Ear Infections: No Deafness: No Eye Prosthesis: No Endocrine Problems Diabetes Mellitus Type 1: No Diabetes Mellitus Type 2: Yes Hypoglycemia: No [place]'s Syndrome: No Huron's Disease: No Hyperthyroidism: No Hypothyroidism: No Thyroid Cancer: No Parathyroid Disease: No Pituitary Disease: No Systemic Lupus Erythematosus: No Syndrome of Inappropriate Antidiuretic Hormone: No Adrenal Disease: No Graves' Disease: No Blood Problems Anemia: No Leukemia: No Hemophilia: No Thalassemia: No Sickle Cell Disease: No Clotting Problems: No Psychologic Problems Schizophrenia: No Recreational Drug Use: No Bipolar Disorder: No Depression: No Anxiety: No Behavior Problems: No Self-Mutilation: No Attention Deficit Disorder: No Attention Deficit Hyperactivity Disorder: No Depression: No Post Traumatic Stress Disorder: No Eating Disorder: No Other Problems Hospitalization: Yes Autoimmune Disease: No Down Syndrome: No Autism: No Developmental Delay: No Cosmetic Surgery: No Shingles: No Falls: No Blood Transfusions: No Blood Transfusion Reaction: No Anesthesia Reactions: No Organ Transplant: No Chemotherapy: No Radiation Therapy: No Hyperbaric Therapy: No MRSA: No VRSA: No Vancomycin-Resistant Enterococci: No Human Immunodeficiency Virus (HIV): No Chicken Pox: Yes Measles: Yes Mumps: No Rubella (Belize[place] Measles): No Pertussis: No Klebsiella Pneumoniae Carbapenemase Producing Bacteria: No Clostridium Difficile: No Hepatitis A: No Hepatitis B: No Hepatitis C: No Communicable Disease: No Cancer: No Lung Cancer: No Surgical History Angioplasty: No Appendectomy: No Bariatric Surgery: No Breast Surgery: No Cancer Surgery: No Carotid Endarterectomy: No Cholecystectomy: No Colectomy: No Colostomy: No Coronary Artery Bypass Graft: No Valve Replacement: No Herniorrhaphy: No Total Hip Replacement: Yes Total Knee Replacement: Yes Pacemaker: No Sinus Surgery: No Splenectomy: No Thyroidectomy: No Ureter Stent: No Subjective Visit Visit for: follow up visit and knee Immunization / Flu Flu Vaccine in the Last 12 Months: No Flu Vaccine Exclusion Criteria: No Exclusion Criteria History of Present Illness Chief complaint: 6 WK POST OP TKA Dawood is 6 weeks status post right total knee replacement. He is doing well. The pain has gone down substantially as well as the swelling. Personal History Red flag PMH: none BMI Counceling provided: Yes Pain Pain level (0-10): 3 Pain duration: ALL DAY Pain location: inside (medial), outside (lateral) and anterior Pain quality: sharp, dull and aching Pain timing: night Associated signs & symptoms: none Ambulatory data Ambulatory device: walker Treatments Improvement with previous injections: No Improvement with PT: No Improvement with NSAIDS: no Review of Systems Review of Systems: All systems negative unless otherwise noted in HPI.
[2024-12-15 13:14] VITALS: BP 117/75; PULSE 73; RESP 16; TEMP 36.6; O2SAT 96; BMI 32.9
--- NOTE | 2024-12-15 13:20 | XR_ITS ---
Examination: Bilateral knees 2 views Right lateral knee left lateral knee 2 views Right axial knee left axial knee 2 views TECHNIQUE: Bilateral AP knees standing single view, bilateral PA knees standing single view flexion Standing right lateral knee left lateral knee 2 views Right axial knee left axial knee 2 views Date and time: December 15, 2024 1326 hours INDICATIONS: Right knee replacement 6 weeks ago left knee replacement 9 years ago left knee pain one year FINDINGS: Mild osteopenia. Bilateral total knee arthroplasties. Satisfactory alignment No loosening of the prosthetic components. No fractures No patellar dislocation IMPRESSION: Bilateral total knee arthroplasties with satisfactory alignment
== END 2024-12-15 13:25 | disposition home or self-care (01) ==
LOC: HODSRG 13:03
PROVIDERS: PCP Family Medicine; Referring Provider Family Medicine; Supervising Provider Orthopaedic Surgery Adult Reconstructive Orthopaedic Surgery; Visit Provider Orthopaedic Surgery Adult Reconstructive Orthopaedic Surgery
DX: M17.11 Unilateral primary osteoarthritis, right knee (principal); M25.561 Pain in right knee; Z96.651 Presence of right artificial knee joint; I10 Essential (primary) hypertension; E78.00 Pure hypercholesterolemia, unspecified; I25.10 Atherosclerotic heart disease of native coronary artery without angina pectoris; G47.30 Sleep apnea, unspecified; E11.9 Type 2 diabetes mellitus without complications
CPT/HCPCS: 73564; 99213; G0463

== ENCOUNTER 2025-03-18 10:10 | Outpatient (AMB) | payer MEDICAID, SELFPAY ==
[2025-03-18 10:28] VITALS: BP 121/77; PULSE 63; RESP 19; TEMP 36.4; O2SAT 97; BMI 34.3
--- NOTE | 2025-03-18 10:28 | PD.ORTHCLVIS ---
Vital signs 03/18/25 10:28 Height 1.71 m Height Method Measured Weight 100.442 kg Weight Measurement Method Standing Scale BMI 34.3 BP 121/77 Blood Pressure Source Automatic Cuff Blood Pressure Location Left Upper Arm Position Sitting Respiration 19 Pulse 63 Pulse Source Monitor Temp 97.5 F Temp Source Temporal Artery Scan Pulse Oximetry (%) 97 Oxygen Delivery Method Room Air Med/Allergies Allergies & Medications Allergies No Known Allergies Allergy (Verified 03/18/25 10:29) Medication Reconciliation amlodipine 10 mg tablet 10 mg PO QDAY 03/27/24 [History Confirmed 03/18/25] carvedilol 3.125 mg tablet 3.125 mg PO BID 03/27/24 [History Confirmed 03/18/25] chlorthalidone 50 mg tablet 50 mg PO QDAY PRN edema 03/27/24 [History Confirmed 03/18/25] empagliflozin 25 mg tablet (Jardiance) 25 mg PO QAM 03/27/24 [History Confirmed 03/18/25] losartan 25 mg tablet 25 mg PO QDAY 03/27/24 [History Confirmed 03/18/25] metformin 1,000 mg tablet 1,000 mg PO QDAY 03/27/24 [History Confirmed 03/18/25] atorvastatin 20 mg tablet (Lipitor) 20 mg PO QDAY 10/29/24 [History Confirmed 03/18/25] azelastine 137 mcg (0.1 %) nasal spray 1 spray intranasal Q12H 10/29/24 [History Confirmed 03/18/25] cetirizine 10 mg tablet 10 mg PO DAILY 10/29/24 [History Confirmed 03/18/25] fluticasone propionate 50 mcg/actuation nasal spray,suspension 1 spray intranasal DAILY 10/29/24 [History Confirmed 03/18/25] montelukast 10 mg tablet 10 mg PO DAILY 10/29/24 [History Confirmed 03/18/25] sitagliptin phosphate 50 mg tablet (Januvia) 50 mg PO DAILY 10/29/24 [History Confirmed 03/18/25] acetaminophen 500 mg tablet (Acetaminophen Extra Strength) 1,000 mg (2 x 500 mg) PO Q6H PRN pain #90 tabs 11/02/24 [Rx Confirmed 03/18/25] aspirin 81 mg tablet,delayed release 81 mg PO BID #60 tabs 11/02/24 [Rx Confirmed 03/18/25] doxycycline hyclate 100 mg tablet 100 mg PO BID #14 tabs 11/02/24 [Rx Confirmed 03/18/25] gabapentin 300 mg capsule 300 mg PO .qhs #30 caps 11/02/24 [Rx Confirmed 03/18/25] sennosides 8.6 mg-docusate sodium 50 mg tablet (Senna-S) 1 tab-cap PO QDAY #30 tabs 11/02/24 [Rx Confirmed 03/18/25] oxycodone 5 mg tablet 5 mg PO Q6H PRN pain #28 tabs 11/09/24 [Rx Confirmed 03/18/25] cyclobenzaprine 5 mg tablet 5 mg PO TID PRN muscle spasm #28 tabs 11/10/24 [Rx Confirmed 03/18/25] Exam Exam Patient is in no acute distress and is cooperative with the examination today. Patient has a normal mood and affect. Breathing is nonlabored. In no respiratory distress. Bilateral extremities were evaluated and demonstrates sensation intact to light touch. Palpable pedal pulses are present. No significant edema is present. Right knee incision is clean dry and intact. Range of motion 0 to 100 Degrees Assessment and Plan Problem List (1) Arthritis of right knee: Status: Acute Plan: Patient is a 63-year-old male with right knee pain and right knee arthritis. He is status post right total knee replacement and is doing well. His range of motion is good. He has been experiencing some pain that starts in the hip and radiates down to the thigh and knee. I would like to get hip films to see if his knee. We will see him back for routine follow-up Office Procedures GNS Level of Care Nursing/Assessment Patient Status: Established Patient Nursing Assessment/Reassesment: Medication Reconciliation, Update PMH in EMR and Vital Signs Coordination of Care: Complex Care and Chronic Disease 1-5, Education Complex Pt/Fam, Consent,records obtained, informed consent, Results/Orders obtained and Staff clarify orders Established Patient Charge Established Patient Point Assignment: 95 Established Patient Point Charge: EP Level 3 (80-115) MA Intake Visit Data Collection New Patient or Established: Established Patient (seen at [facility] within 3 years) Reason for Visit:: XRAY F/U Seen by Clinical Staff ONLY (RN/MA): No Medical/Surgery Registered Nurse Required: No PCP or OBGYN visit in last 3 months: Yes Hx Now: No Do You Feel Safe at Home: Yes Authorities Contacted: N/A Questionairres Past Medical History Past Medical History Have you ever been diagnosed with any of the following: Neurological Problems Cerebrovascular Accident (CVA): No Transient Ischemic Attacks (TIA): No Dementia: No Alzheimer's Disease: No Parkinson's Disease: No Brain Tumor: No Meningitis: No Seizures: No Epilepsy: No Multiple Sclerosis: No Cerebral Palsy: No Amyotrophic Lateral Sclerosis (ALS/Katharine Gehrig's): No Guillain-Creston Syndrome: No Spina Bifida: No Paralysis: No Peripheral Neuropathy: No Newton's Palsy: No Subdural Hematoma: No Migraine: No Head Trauma: Yes (hospitalized once) Spinal Cord Injury: No Traumatic Brain Injury: No Cardiology Problems Myocardial Infarction: Yes Cardiac Arrhythmia: No Atrial Fibrillation: No Angina: No Heart Murmur: No Coronary Artery Disease: Yes Atherosclerotic Heart Disease: No Peripheral Vascular Disease: Yes Hypercholesterolemia: Yes Aneurysm: No Congestive Heart Failure: No Congenital Heart Disease: No Valvular Heart Disease: No Rheumatic Fever: No Cardiomyopathy: No Edema: No Pericarditis: No Cellulitis: No Deep Vein Thrombosis: No Hypertension: Yes Hypotension: No Varicose Veins: Yes Respiratory Problems Chronic Obstructive Pulmonary Disease (COPD): No Asthma: No Bronchitis: No Emphysema: No Pneumonia: No Pulmonary Fibrosis: No Tuberculosis: No Pulmonary Embolism: No Pulmonary Edema: No Sleep Apnea: Yes (has not used the CPAP yet, has it at home) CPAP Dependent: No Respiratory Aspiration: No Dyspnea: No Orthopnea: No Hx Cough: No Cough: No Wheezing: No Chest Deformities: No Smoking: No Smoking Cessation Counseling: No Smoking Exposure: No Tobacco Use: No Clubbing: No Exposure to Respiratory Irritants: No Intubation: No Stomache/Intestinal Problems Liver Cancer: No Hepatitis: No Cirrhosis: No Pancreatic Cancer: No Pancreatitis: No Celiac Disease: No Gall Bladder Disease: No Gastrointestinal Bleed: No Esophageal Varices: No Quiros's Esophagus: No Colitis: No Ulcerative Colitis: No Diverticulitis: No Diverticulosis: No Ulcer: No Colorectal Cancer: No Irritable Bowel: Yes Crohn's Disease: No Obstructive Bowel: No Hiatal Hernia: No Hemorrhoids: No Gastroesophageal Reflux Disease: No Polyps: No Obesity: Yes Genital/Urinary Problems Chronic Kidney Disease: No Renal Disease: No Kidney Stones: No Polycystic Kidney Disease: No Neurogenic Bladder: No Inguinal Hernia: No Dialysis: No Prostate Cancer: No Benign Prostatic Hyperplasia: Yes Reproductive Problems Breast Cancer: No Fibroids: No Genital Herpes: No Gonorrhea: No Syphilis: No Testicular Cancer: No Musculoskeletal Problems Muscular Dystrophy: No Myasthenia Gravis: No Marfan's Syndrome: No Bone Cancer: No Arthritis: Yes Rheumatoid Arthritis: No Osteoporosis: No Degenerative Disk Disease: Yes Gout: No Scoliosis: No Carpal Tunnel Syndrome: No Fibromyalgia: No Fractures: No Degenerative Joint Disease: No Osteomyelitis: No Poliovirus: No Head,Eye,Nose,Throat Problems Cataracts: Yes Glaucoma: No Blind: No Retinal Detachment: No Macular Degeneration: No Chronic Ear Infections: No Deafness: No Eye Prosthesis: No Endocrine Problems Diabetes Mellitus Type 1: No Diabetes Mellitus Type 2: Yes Hypoglycemia: No [place]'s Syndrome: No Joseph's Disease: No Hyperthyroidism: No Hypothyroidism: No Thyroid Cancer: No Parathyroid Disease: No Pituitary Disease: No Systemic Lupus Erythematosus: No Syndrome of Inappropriate Antidiuretic Hormone: No Adrenal Disease: No Graves' Disease: No Blood Problems Anemia: No Leukemia: No Hemophilia: No Thalassemia: No Sickle Cell Disease: No Clotting Problems: No Psychologic Problems Schizophrenia: No Recreational Drug Use: No Bipolar Disorder: No Depression: No Anxiety: No Behavior Problems: No Self-Mutilation: No Attention Deficit Disorder: No Attention Deficit Hyperactivity Disorder: No Depression: No Post Traumatic Stress Disorder: No Eating Disorder: No Other Problems Hospitalization: Yes Autoimmune Disease: No Down Syndrome: No Autism: No Developmental Delay: No Cosmetic Surgery: No Shingles: No Falls: No Blood Transfusions: No Blood Transfusion Reaction: No Anesthesia Reactions: No Organ Transplant: No Chemotherapy: No Radiation Therapy: No Hyperbaric Therapy: No MRSA: No VRSA: No Vancomycin-Resistant Enterococci: No Human Immunodeficiency Virus (HIV): No Chicken Pox: Yes Measles: Yes Mumps: No Rubella ([place] Measles): No Pertussis: No Klebsiella Pneumoniae Carbapenemase Producing Bacteria: No Clostridium Difficile: No Hepatitis A: No Hepatitis B: No Hepatitis C: No Communicable Disease: No Cancer: No Lung Cancer: No Surgical History Angioplasty: No Appendectomy: No Bariatric Surgery: No Breast Surgery: No Cancer Surgery: No Carotid Endarterectomy: No Cholecystectomy: No Colectomy: No Colostomy: No Coronary Artery Bypass Graft: No Valve Replacement: No Herniorrhaphy: No Total Hip Replacement: Yes Total Knee Replacement: Yes Pacemaker: No Sinus Surgery: No Splenectomy: No Thyroidectomy: No Ureter Stent: No Subjective Visit Visit for: follow up visit and knee Immunization / Flu Flu Vaccine in the Last 12 Months: No Flu Vaccine Exclusion Criteria: No Exclusion Criteria History of Present Illness Chief complaint: XRAY F/U Dawood is 12 weeks status post right total knee replacement. He is doing well. The pain has gone down substantially as well as the swelling. Personal History Red flag PMH: none BMI Counceling provided: Yes Pain Pain level (0-10): 5 Pain duration: ALL DAY Pain location: inside (medial), outside (lateral) and anterior Pain quality: sharp, dull and aching Pain timing: night Associated signs & symptoms: none Ambulatory data Ambulatory device: walker Treatments Improvement with previous injections: No Improvement with PT: No Improvement with NSAIDS: no Review of Systems Review of Systems: All systems negative unless otherwise noted in HPI.
--- NOTE | 2025-03-18 10:37 | XR_ITS ---
EXAMINATION: Bilateral AP knee single view Right knee PA lateral axial 3 views TECHNIQUE: Bilateral AP knees standing single view Right knee standing PA flexion, standing lateral, axial right knee 3 views total 4 views Date and time: March 18, 2025, 1044 hours INDICATIONS: Right knee pain after right knee replacement October 2024. FINDINGS: Moderate osteopenia. Total right knee arthroplasty. Satisfactory alignment Osteocartilaginous exostosis partly visualized off the proximal fibular shaft Small knee effusion Ossified bodies in the posterior joint space, 9 mm, 10 mm, 10 mm No patellar dislocation No fracture Total left knee arthroplasty with satisfactory alignment IMPRESSION: Bilateral total knee arthroplasties with satisfactory alignment
--- NOTE | 2025-03-18 10:37 | XR_ITS ---
Examination: Right hip AP, lateral, AP pelvis 3 views Technique: Hip AP lateral, AP pelvis, 3 views Exam date and time: March 18, 2025, 10:40 a.m. INDICATIONS: Right hip pain after knee replacement October 2024. FINDINGS: Advanced right hip osteoarthritis No right hip fracture or dislocation Total left hip arthroplasty. Satisfactory alignment. Bones of the pelvis intact IMPRESSION: Advanced right hip osteoarthritis.
== END 2025-03-18 10:38 | disposition home or self-care (01) ==
LOC: HODSRG 10:10
PROVIDERS: PCP Family Medicine; Referring Provider Family Medicine; Supervising Provider Orthopaedic Surgery Adult Reconstructive Orthopaedic Surgery; Visit Provider Orthopaedic Surgery Adult Reconstructive Orthopaedic Surgery
DX: Z47.1 Aftercare following joint replacement surgery (principal); Z96.651 Presence of right artificial knee joint; M16.11 Unilateral primary osteoarthritis, right hip; M25.561 Pain in right knee; I10 Essential (primary) hypertension; E11.9 Type 2 diabetes mellitus without complications; Z79.84 Long term (current) use of oral hypoglycemic drugs; E66.9 Obesity, unspecified; Z68.34 Body mass index [BMI] 34.0-34.9, adult
CPT/HCPCS: 73502; 73564; 99213; G0463

== ENCOUNTER 2025-04-20 09:03 | Outpatient (AMB) | payer MEDICAID, SELFPAY ==
--- NOTE | 2025-04-20 09:23 | PD.ORTHCLVIS ---
Vital signs 04/20/25 09:24 Height 1.71 m Height Method Stated Weight 101.208 kg Weight Measurement Method Standing Scale BMI 34.6 BP 133/79 H Blood Pressure Source Automatic Cuff Blood Pressure Location Left Upper Arm Position Sitting Respiration 19 Pulse 62 Pulse Source Monitor Temp 97.3 F Temp Source Temporal Artery Scan Pulse Oximetry (%) 95 Oxygen Delivery Method Room Air Med/Allergies Allergies & Medications Allergies No Known Allergies Allergy (Verified 04/20/25 09:24) Medication Reconciliation amlodipine 10 mg tablet 10 mg PO QDAY 03/27/24 [History Confirmed 04/20/25] carvedilol 3.125 mg tablet 3.125 mg PO BID 03/27/24 [History Confirmed 04/20/25] chlorthalidone 50 mg tablet 50 mg PO QDAY PRN edema 03/27/24 [History Confirmed 04/20/25] empagliflozin 25 mg tablet (Jardiance) 25 mg PO QAM 03/27/24 [History Confirmed 04/20/25] losartan 25 mg tablet 25 mg PO QDAY 03/27/24 [History Confirmed 04/20/25] metformin 1,000 mg tablet 1,000 mg PO QDAY 03/27/24 [History Confirmed 04/20/25] atorvastatin 20 mg tablet (Lipitor) 20 mg PO QDAY 10/29/24 [History Confirmed 04/20/25] azelastine 137 mcg (0.1 %) nasal spray 1 spray intranasal Q12H 10/29/24 [History Confirmed 04/20/25] cetirizine 10 mg tablet 10 mg PO DAILY 10/29/24 [History Confirmed 04/20/25] fluticasone propionate 50 mcg/actuation nasal spray,suspension 1 spray intranasal DAILY 10/29/24 [History Confirmed 04/20/25] montelukast 10 mg tablet 10 mg PO DAILY 10/29/24 [History Confirmed 04/20/25] sitagliptin phosphate 50 mg tablet (Januvia) 50 mg PO DAILY 10/29/24 [History Confirmed 04/20/25] acetaminophen 500 mg tablet (Acetaminophen Extra Strength) 1,000 mg (2 x 500 mg) PO Q6H PRN pain #90 tabs 11/02/24 [Rx Confirmed 04/20/25] aspirin 81 mg tablet,delayed release 81 mg PO BID #60 tabs 11/02/24 [Rx Confirmed 04/20/25] doxycycline hyclate 100 mg tablet 100 mg PO BID #14 tabs 11/02/24 [Rx Confirmed 04/20/25] gabapentin 300 mg capsule 300 mg PO .qhs #30 caps 11/02/24 [Rx Confirmed 04/20/25] sennosides 8.6 mg-docusate sodium 50 mg tablet (Senna-S) 1 tab-cap PO QDAY #30 tabs 11/02/24 [Rx Confirmed 04/20/25] oxycodone 5 mg tablet 5 mg PO Q6H PRN pain #28 tabs 11/09/24 [Rx Confirmed 04/20/25] cyclobenzaprine 5 mg tablet 5 mg PO TID PRN muscle spasm #28 tabs 11/10/24 [Rx Confirmed 04/20/25] Exam Exam Patient is in no acute distress and is cooperative with the examination today. Patient has a normal mood and affect. Breathing is nonlabored. In no respiratory distress. Bilateral extremities were evaluated and demonstrates sensation intact to light touch. Palpable pedal pulses are present. No significant edema is present. Right knee incision is clean dry and intact. Range of motion 0 to 100 Degrees Right knee x-rays demonstrate cementless total knee replacement in alignment position. The patient has advanced osteoarthritis of his right hip as well. He also has significant degenerative changes in his back Assessment and Plan Problem List (1) Arthritis of right knee: Status: Acute Plan: Patient is a pleasant 64-year-old male status post right total knee replacement 6 months ago. He has persistent pain in his right lower extremity. He had a history of back surgery 2 years ago and reports that the back pain is increased as well as the numbness and tingling down his leg. Will order an MRI to evaluate the back. In addition we know he has significant right hip arthritis. Is unclear how much of the pain in his knee is from his hip and we will thus start with a diagnostic right hip intra-articular steroid injection to help with this. I will also get an ESR and CRP to be comprehensive and rule out infection for the right knee (2) Arthritis of right hip: Status: Acute (3) Spinal stenosis: Status: Acute Office Procedures GNS Level of Care Nursing/Assessment Patient Status: Established Patient Nursing Assessment/Reassesment: Medication Reconciliation, Update PMH in EMR and Vital Signs Coordination of Care: Complex Care and Chronic Disease 1-5, Education Complex Pt/Fam, Consent,records obtained, informed consent, Results/Orders obtained and Staff clarify orders Established Patient Charge Established Patient Point Assignment: 95 Established Patient Point Charge: EP Level 3 (80-115) MA Intake Visit Data Collection New Patient or Established: Established Patient (seen at [facility] within 3 years) Reason for Visit:: XRAY F/U Seen by Clinical Staff ONLY (RN/MA): No 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 PCP or OBGYN visit in last 3 months: Yes Hx Now: No Do You Feel Safe at Home: Yes Authorities Contacted: N/A Questionairres Past Medical History Past Medical History Have you ever been diagnosed with any of the following: Neurological Problems Cerebrovascular Accident (CVA): No Transient Ischemic Attacks (TIA): No Dementia: No Alzheimer's Disease: No Parkinson's Disease: No Brain Tumor: No Meningitis: No Seizures: No Epilepsy: No Multiple Sclerosis: No Cerebral Palsy: No Amyotrophic Lateral Sclerosis (ALS/Katharine Gehrig's): No Guillain-[place] Syndrome: No Spina Bifida: No Paralysis: No Peripheral Neuropathy: No Newton's Palsy: No Subdural Hematoma: No Migraine: No Head Trauma: Yes (hospitalized once) Spinal Cord Injury: No Traumatic Brain Injury: No Cardiology Problems Myocardial Infarction: Yes Cardiac Arrhythmia: No Atrial Fibrillation: No Angina: No Heart Murmur: No Coronary Artery Disease: Yes Atherosclerotic Heart Disease: No Peripheral Vascular Disease: Yes Hypercholesterolemia: Yes Aneurysm: No Congestive Heart Failure: No Congenital Heart Disease: No Valvular Heart Disease: No Rheumatic Fever: No Cardiomyopathy: No Edema: No Pericarditis: No Cellulitis: No Deep Vein Thrombosis: No Hypertension: Yes Hypotension: No Varicose Veins: Yes Respiratory Problems Chronic Obstructive Pulmonary Disease (COPD): No Asthma: No Bronchitis: No Emphysema: No Pneumonia: No Pulmonary Fibrosis: No Tuberculosis: No Pulmonary Embolism: No Pulmonary Edema: No Sleep Apnea: Yes (has not used the CPAP yet, has it at home) CPAP Dependent: No Respiratory Aspiration: No Dyspnea: No Orthopnea: No Hx Cough: No Cough: No Wheezing: No Chest Deformities: No Smoking: No Smoking Cessation Counseling: No Smoking Exposure: No Tobacco Use: No Clubbing: No Exposure to Respiratory Irritants: No Intubation: No Stomache/Intestinal Problems Liver Cancer: No Hepatitis: No Cirrhosis: No Pancreatic Cancer: No Pancreatitis: No Celiac Disease: No Gall Bladder Disease: No Gastrointestinal Bleed: No Esophageal Varices: No Quiros's Esophagus: No Colitis: No Ulcerative Colitis: No Diverticulitis: No Diverticulosis: No Ulcer: No Colorectal Cancer: No Irritable Bowel: Yes Crohn's Disease: No Obstructive Bowel: No Hiatal Hernia: No Hemorrhoids: No Gastroesophageal Reflux Disease: No Polyps: No Obesity: Yes Genital/Urinary Problems Chronic Kidney Disease: No Renal Disease: No Kidney Stones: No Polycystic Kidney Disease: No Neurogenic Bladder: No Inguinal Hernia: No Dialysis: No Prostate Cancer: No Benign Prostatic Hyperplasia: Yes Reproductive Problems Breast Cancer: No Fibroids: No Genital Herpes: No Gonorrhea: No Syphilis: No Testicular Cancer: No Musculoskeletal Problems Muscular Dystrophy: No Myasthenia Gravis: No Marfan's Syndrome: No Bone Cancer: No Arthritis: Yes Rheumatoid Arthritis: No Osteoporosis: No Degenerative Disk Disease: Yes Gout: No Scoliosis: No Carpal Tunnel Syndrome: No Fibromyalgia: No Fractures: No Degenerative Joint Disease: No Osteomyelitis: No Poliovirus: No Head,Eye,Nose,Throat Problems Cataracts: Yes Glaucoma: No Blind: No Retinal Detachment: No Macular Degeneration: No Chronic Ear Infections: No Deafness: No Eye Prosthesis: No Endocrine Problems Diabetes Mellitus Type 1: No Diabetes Mellitus Type 2: Yes Hypoglycemia: No Chassell's Syndrome: No [place]'s Disease: No Hyperthyroidism: No Hypothyroidism: No Thyroid Cancer: No Parathyroid Disease: No Pituitary Disease: No Systemic Lupus Erythematosus: No Syndrome of Inappropriate Antidiuretic Hormone: No Adrenal Disease: No Graves' Disease: No Blood Problems Anemia: No Leukemia: No Hemophilia: No Thalassemia: No Sickle Cell Disease: No Clotting Problems: No Psychologic Problems Schizophrenia: No Recreational Drug Use: No Bipolar Disorder: No Depression: No Anxiety: No Behavior Problems: No Self-Mutilation: No Attention Deficit Disorder: No Attention Deficit Hyperactivity Disorder: No Depression: No Post Traumatic Stress Disorder: No Eating Disorder: No Other Problems Hospitalization: Yes Autoimmune Disease: No Down Syndrome: No Autism: No Developmental Delay: No Cosmetic Surgery: No Shingles: No Falls: No Blood Transfusions: No Blood Transfusion Reaction: No Anesthesia Reactions: No Organ Transplant: No Chemotherapy: No Radiation Therapy: No Hyperbaric Therapy: No MRSA: No VRSA: No Vancomycin-Resistant Enterococci: No Human Immunodeficiency Virus (HIV): No Chicken Pox: Yes Measles: Yes Mumps: No Rubella ([place] Measles): No Pertussis: No Klebsiella Pneumoniae Carbapenemase Producing Bacteria: No Clostridium Difficile: No Hepatitis A: No Hepatitis B: No Hepatitis C: No Communicable Disease: No Cancer: No Lung Cancer: No Surgical History Angioplasty: No Appendectomy: No Bariatric Surgery: No Breast Surgery: No Cancer Surgery: No Carotid Endarterectomy: No Cholecystectomy: No Colectomy: No Colostomy: No Coronary Artery Bypass Graft: No Valve Replacement: No Herniorrhaphy: No Total Hip Replacement: Yes Total Knee Replacement: Yes Pacemaker: No Sinus Surgery: No Splenectomy: No Thyroidectomy: No Ureter Stent: No Subjective Visit Visit for: follow up visit and knee Immunization / Flu Flu Vaccine in the Last 12 Months: No Flu Vaccine Exclusion Criteria: No Exclusion Criteria History of Present Illness Chief complaint: XRAY F/U Patient is a pleasant 64-year-old male with a right total knee replacement 6 months ago. He reports that he has persistent pain that starts in the back and hip and radiates down the groin, thigh and down to his legs. He reports that he has numbness and tingling all the time. He had back surgery 2 years ago. He is unsure whether it is his hip, back or his knee that is having pain. There is associated numbness and tingling. Personal History Red flag PMH: none BMI Counceling provided: Yes Pain Pain level (0-10): 0 Ambulatory data Ambulatory device: none Treatments Improvement with previous injections: No Improvement with PT: No Improvement with NSAIDS: no Review of Systems Review of Systems: All systems negative unless otherwise noted in HPI.
[2025-04-20 09:24] VITALS: BP 133/79; PULSE 62; RESP 19; TEMP 36.3; O2SAT 95; BMI 34.6
== END 2025-04-20 09:49 | disposition home or self-care (01) ==
LOC: HODSRG 09:03
PROVIDERS: PCP Family Medicine; Referring Provider Family Medicine; Supervising Provider Orthopaedic Surgery Adult Reconstructive Orthopaedic Surgery; Visit Provider Orthopaedic Surgery Adult Reconstructive Orthopaedic Surgery
DX: Z47.1 Aftercare following joint replacement surgery (principal); Z96.651 Presence of right artificial knee joint; M48.00 Spinal stenosis, site unspecified; M16.11 Unilateral primary osteoarthritis, right hip; I10 Essential (primary) hypertension; E66.9 Obesity, unspecified; Z68.34 Body mass index [BMI] 34.0-34.9, adult; E11.9 Type 2 diabetes mellitus without complications; Z79.84 Long term (current) use of oral hypoglycemic drugs
CPT/HCPCS: 99213; G0463